=== PATIENT | female | born 2005 | race Caucasian/White ===

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

== ENCOUNTER 2023-08-24 21:04 | Emergency (ER) | payer BC ==
[2023-08-24 21:51] LABS: APPEARANCE,URINE SLT CLOUDY (Clear); BILIRUBIN,URINE 1+ (Negative); COLOR,URINE YELLOW (Yellow); GLUCOSE,URINE NEGATIVE (Negative); KETONES,URINE 2+ (Negative); LEUKOCYTE ESTERASE,URINE NEGATIVE (Negative); NITRITE,URINE NEGATIVE (Negative); OCCULT BLOOD,URINE 1+ (Negative); PH,URINE 5.5 (5.0-8.0); PROTEIN,URINE 2+ (Negative); UROBILINOGEN,URINE 0.2 (0.2-1.0)
[2023-08-24 21:51] LABS: BASOPHILS PERCENT AUTO 0.2 % (0.0-1.0); EOSINOPHILS ABSOLUTE AUTO 0.1 K/mm3 (0.0-0.4); EOSINOPHILS PERCENT AUTO 0.8 % (0.0-6.0); HEMATOCRIT 37.8 % (37.0-47.0); HEMOGLOBIN 12.9 gm/dl (12.0-16.0); IMMATURE GRAN ABSOLUTE AUTO 0.03 K/mm3 (0.00-0.05); IMMATURE GRAN PERCENT AUTO 0.3 % (0.0-0.4); LYMPHOCYTES ABSOLUTE AUTO 0.8 K/mm3 (1.0-4.8); LYMPHOCYTES PERCENT AUTO 8.5 % (24.0-44.0); MEAN CORPUSCULAR HEMOGLOBIN 30.8 pg (28.0-32.0); MEAN CORPUSCULAR HGB CONC 34.1 g/dl (32.0-36.0); MEAN CORPUSCULAR VOLUME 90.2 fl (83.0-99.0); MEAN PLATELET VOLUME 11.2 fl (9.4-12.3); MONOCYTES ABSOLUTE AUTO 0.8 K/mm3 (0.0-0.8); MONOCYTES PERCENT AUTO 8.1 % (0.0-8.0); NEUTROPHILS ABSOLUTE AUTO 7.7 K/mm3 (1.8-7.7); NEUTROPHILS PERCENT AUTO 82.1 % (41.0-71.0); PLATELET COUNT,PLT 105 K/mm3 (150-400); RED BLOOD CELL COUNT 4.19 M/mm3 (4.10-5.30); WHITE BLOOD CELL COUNT,WBC 9.42 K/mm3 (3.9-11.3)
[2023-08-24] MEDS: Ondansetron 4 MG/2 ML SDV IVPUSH ONE (21:51)
[2023-08-24] MEDS: Lactated Ringers 1,000 ML IV SCH (21:51)
[2023-08-24] MEDS: Sodium Chloride 0.9% 10 ML Syringe FLUSH PRN (21:54)
[2023-08-24 21:59] LABS: BACTERIA,URINE MODERATE /hpf (FEW); MUCUS,URINE MANY /hpf (FEW); WBC,URINE 0-5 /hpf (0-5)
[2023-08-24 22:07] LABS: A/G RATIO 1.1 (1-2); ALBUMIN 3.8 g/dl (3.4-5.0); ANION GAP 16.5 (5-15); BILIRUBIN TOTAL 0.4 mg/dL (0.2-1.0); CALCIUM 8.9 mg/dL (8.5-10.1); CREATININE 0.9 mg/dL (0.55-1.02); EST CRCL DRUG DOSING (CG) 80.75 mL/min; POTASSIUM,K 3.5 mEq/L (3.5-5.1); PROTEIN TOTAL,TP 7.4 g/dl (6.4-8.2)
[2023-08-24 22:37] LABS: CORONAVIRUS COVID-19 NAA NEGATIVE (NEGATIVE); INFLUENZA A NAA NEGATIVE (NEGATIVE); RESPIRATORY SYNCYTIAL VIR NAA NEGATIVE (NEGATIVE)
[2023-08-24] MEDS: Prochlorperazine 10 MG in Sodium Chloride 0.9% 50 ML IV ONE (22:41)
== END 2023-08-24 23:51 | disposition home or self-care (01) ==
LOC: JD.ED 21:04
DX: R11.2 Nausea with vomiting, unspecified (principal); Z79.899 Other long term (current) drug therapy
CPT/HCPCS: 0241U; 36415; 80053; 81001; 81025; 83690; 85025; 96361; 96365; 96375; 99284; J0780; J2405; J3490; J7120; 99283